=== PATIENT | male | born 1955 | race Caucasian/White ===

== ENCOUNTER 2018-02-11 14:33 | Inpatient (IN) | payer OTHER ==
--- NOTE | 2018-02-11 16:36 | CPEKG ---
Heart Rate: 60 RR Interval: 1000 P-R Interval: 172 QRSD Interval: 100 QT Interval: 420 QTC Interval: 420 P Ratcliff: 47 QRS Ratcliff: -31 T Wave [place]cliff: 37 EKG Severity - ABNORMAL ECG - EKG Impression: SINUS RHYTHM EKG Impression: Left axis deviation Electronically Signed By: Armando Hidalgo 11-Feb-2018 17:20:16
[2018-02-11 16:42] LABS: PLATELET COUNT 234 10^3/uL (150-400)
--- NOTE | 2018-02-11 16:56 | PDGENHP ---
History and Physical - Chief Complaint cp - History of Present Illness This is 62 yo male with no significant pmhx who was seen by his liquor commissioner today (Dr. Bisi Poe from ) for chest pain and GRANDE. According to Dr. Poe he had a treadmill stress test today and during this test he had ST depressions and chest pain. I was originally contacted by Dr. Poe requesting a direct admission. After discussion we agreed that the patient would go to our ED for stabilization. This did not occur as the pt drove himself to the hospital and has shown up to the PCU with admission paperwork. We do not have a copy of the treadmill test. He did not have a troponin checked in the office. We do not have an EKG He is having 1-2 substernal chest pain. He has a family hx of cardiac disease and his father and grandfather from [place] in their late 60's. He is a non smoker. no hx of dm. no hx of HLD. no hx of HTN. He has a hx of well controlled asthma. PMHx: Per above PSHx: sinus surgery Soc: no T. social ETOH. no illicits, retired FmHx: per above History Information - Allergies/Home Medication List Allergies/Adverse Reactions: Sulfa (Sulfonamide Antibiotics) Allergy (Unknown, Unverified 02/11/18 16:12) Itching Home Medications: Acetaminophen/ASA/Caffeine [Excedrin Tablet (*)] 1 each PO DAILY PRN 02/11/18 [ Last Taken 1 Week Ago ~02/04/18] Albuterol [Proventil Inhaler HFA (*)] 1 - 2 puffs IH Q4H PRN 02/11/18 [Last Taken 1 Month Ago ~01/11/18] Ibuprofen [Motrin (*)] 200 - 400 mg PO DAILY PRN 02/11/18 [Last Taken 1 Week Ago ~02/04/18] Ranitidine HCl [Zantac] 150 mg PO DAILY@18 PRN 02/11/18 [Last Taken 02/10/18] I have personally reviewed and updated: medical history, social history - Social History Smoking Status: Never smoked Review of Systems Review of Systems: ROS: 10pt was reviewed & negative except for what was stated in HPI & below Physical Exam Physical Exam: Constitutional: no apparent distress, appears nourished Eyes: PERRL, EOMI Ears, Nose, Mouth, Throat: moist mucous membranes, hearing normal, ears appear normal Cardiovascular: regular rate and rhythym, No edema Respiratory: no respiratory distress, no rales or rhonchi, clear to auscultation Gastrointestinal: normoactive bowel sounds, soft, non-tender abdomen, no palpable masses Skin: warm Musculoskeletal: full muscle strength Neurologic: AAOx3 Psychiatric: interacting appropriately, not anxious, not encephalopathic Lymph, Heme, Immunologic: No petechiae Lab Data & Imaging Review 02/11/18 16:30 02/11/18 16:30 WBC 10.58 10^3/uL (3.80-9.50) H 02/11/18 16:30 RBC 4.91 10^6/uL (4.40-6.38) 02/11/18 16:30 Hgb 15.5 g/dL (13.7-17.5) 02/11/18 16:30 Hct 44.2 % (40.0-51.0) 02/11/18 16:30 MCV 90.0 fL (81.5-99.8) 02/11/18 16:30 MCH 31.6 pg (27.9-34.1) 02/11/18 16:30 MCHC 35.1 g/dL (32.4-36.7) 02/11/18 16:30 RDW 12.9 % (11.5-15.2) 02/11/18 16:30 Plt Count 234 10^3/uL (150-400) 02/11/18 16:30 MPV 10.7 fL (8.7-11.7) 02/11/18 16:30 Neut % (Auto) 63.5 % (39.3-74.2) 02/11/18 16:30 Lymph % (Auto) 25.2 % (15.0-45.0) 02/11/18 16:30 Brown % (Auto) 7.5 % (4.5-13.0) 02/11/18 16:30 Eos % (Auto) 2.7 % (0.6-7.6) 02/11/18 16:30 Baso % (Auto) 0.8 % (0.3-1.7) 02/11/18 16:30 Nucleat RBC Rel Count 0.0 % (0.0-0.2) 02/11/18 16:30 Absolute Neuts (auto) 6.72 10^3/uL (1.70-6.50) H 02/11/18 16:30 Absolute Lymphs (auto) 2.67 10^3/uL (1.00-3.00) 02/11/18 16:30 Absolute Monos (auto) 0.79 10^3/uL (0.30-0.80) 02/11/18 16:30 Absolute Eos (auto) 0.29 10^3/uL (0.03-0.40) 02/11/18 16:30 Absolute Basos (auto) 0.08 10^3/uL (0.02-0.10) 02/11/18 16:30 Absolute Nucleated RBC 0.00 10^3/uL (0-0.01) 02/11/18 16:30 Immature Gran % 0.3 % (0.0-1.1) 02/11/18 16:30 Immature Gran # 0.03 10^3/uL (0.00-0.10) 02/11/18 16:30 Assessment & Plan Assessment: #Chest Pain #Unstable Angina with concerns for ACS Plan: Admit I have ordered stat EKG, TTE, tele, and troponin I have contacted Cardiology who will see the patient stat further reccs per w/u total critical care time is 40 minutes
[2018-02-11] MEDS ORDERED: ONDANSETRON DISINTEGRATING 4 MG TAB PO PRN (16:58)
[2018-02-11] MEDS ORDERED: ONDANSETRON 4 MG/2 ML VIAL IVP PRN (16:58)
[2018-02-11] MEDS ORDERED: ACETAMINOPHEN 325 MG TAB PO PRN (16:58)
[2018-02-11] MEDS ORDERED: ALBUTEROL 3 ML DEYVIAL IH PRN (16:58)
[2018-02-11] MEDS ORDERED: ALBUTEROL 60 PUFFS/8 GM MDI IH PRN (17:03)
[2018-02-11] MEDS ORDERED: ACETAMINOPHEN/ASA/CAFFEINE 1 EACH TAB PO PRN (17:03)
[2018-02-11] MEDS ORDERED: NON-FORMULARY NEW DRUG (Ranitidine Hcl [Zantac] 150 MG) PO PRN (17:03)
[2018-02-11] MEDS ORDERED: FAMOTIDINE 20 MG TAB PO PRN (17:07)
[2018-02-11] MEDS ORDERED: HEPARIN 10,000 UNIT/10 ML MDV (1,000 UNIT/ML) IVP PRN (17:12)
[2018-02-11] MEDS ORDERED: HEPARIN 10,000 UNIT/10 ML MDV (1,000 UNIT/ML) IVP ONE (17:12)
[2018-02-11] MEDS ORDERED: NITROGLYCERIN 0.4 MG BTL SL PRN (17:13)
[2018-02-11] MEDS ORDERED: HEPARIN/DEXTROSE 500 ML IV SCH (17:15)
[2018-02-11] MEDS: METOPROLOL TARTRATE 25 MG TAB PO SCH ×2 (17:56→19:37)
[2018-02-11 18:34] LABS: INR 1.07 (0.83-1.16); PROTIME(PATIENT) 14.1 SEC (12.0-15.0)
--- NOTE | 2018-02-11 22:50 | PDCONSULT ---
Legal Librarian Note: Patient is a 62 y/o male with unremarkable past cardiovascular history (no HTN, HLP, DM, or CAD), who presented to [facility] in unusual manner post stress testing with outside facility today. Chest pains were noted during stress and ST depression of 1-2 mm was noted. This testing was recommended by PCP after patient noted 10/10 chest pains yesterday while exercising. Patient denied any similar symptoms - certainly to the degree noted yesterday - but corrected patient and stated that several weeks of discomfort had been noted. Dyspnea and severe exercise intolerance have been noted in patient with regular and routine exercise program. No labs had been obtained. No ECG tracings were available (report on the stress test was reviewed, but the physical tracings were not available. Some form of communications had been achieved, but [facility] recommendations were for patient to proceed through the ER, not be a direct admission Upon arrival to floor, the patient did report 1/10 chest discomfort. A stat ECG was obtained after hearing the history without dynamic ST/T wave changes noted. Echocardiogram was urgently requested, and I sat in the room as this procedure was completed (normal wall motion and no wall motion abnormalities were noted) Given the history from the patient and , as well as the report of the abnormality to the ETT, cardiac catheterization is recommended. There were no acute or urgent indications for this to be performed this evening. Serial cardiac biomarkers should be obtained. Recommendations for heparin this evening with beta hemal therapy as well as nitro paste (given the vague symptoms reported) NPO after midnight tonight. We will proceed with angiography tomorrow morning. I did speak with the substation wireman team about he unusual presentation of the patient to [facility] simply to elevate overnight awareness of the patients symptoms and pending, invasive, testing.
[2018-02-12 06:02] LABS: PLATELET COUNT 235 10^3/uL (150-400)
[2018-02-12] MEDS: METOPROLOL TARTRATE 25 MG TAB PO SCH ×2 (08:33→20:11)
--- NOTE | 2018-02-12 10:11 | ECHO ---
[email or web address] [address] Main: [phone] Fax: Transthoracic Echocardiogram Name: JL DAVIES MR#: [id number] Study Date: 02/11/2018 Study Time: 04:41 PM Date of : 1955 Age: 62 year(s) Height: 172.7 cm (68 in.) Weight: 77.11 kg (170 lb.) BSA: 1.91 m2 Gender: Male Examination: Echo Indication: Chest Pain Image Quality: Adequate Contrast: Requested by: Jerson Rivera BP: 136 mmHg/92 mmHg Heart Rate: Rhythm: Indication: Chest Pain Procedure Staff Manager Highway: Megan Lewis [facility] Reading Physician: Demian Robbins MD Requesting Provider: Conclusions: Normal size left ventricle. No LV hypertrophy. Normal global systolic LV function. EF is 52 %. No regional wall motion abnormality. Normal diastolic LV function. The mitral valve is normal in appearance and function. Mild mitral valve regurgitation is present. The aortic valve is normal in appearance and function. Mild aortic valve regurgitation is present. The tricuspid valve is normal in appearance and function. Mild tricuspid regurgitation is present. Right ventricular systolic pressure measures 23mmHg. Mild pulmonic valve regurgitation is noted. No pericardial effusion. Measurements: Chambers Valvular Assessment AV/MV Valvular Assessment TV/PV Normal Normal Normal Name Value Range Name Value Range Name Value Range Ao Evelyn (2D): 3.3 cm (1.4 cm-2.6 AV meanP mmHg ( - ) TR Vmax: 2.13 mm/s ( - ) cm) MATHIEU (VTI): 2.4 cm ( - ) TR PGmax: 18 mmHg ( - ) IVSd (2D): 1.1 cm (0.6 cm-1.1 MV E Vmax: 0.50 m/s ( - ) syst. PAP: 23 mmHg ( - ) cm) MV A Vmax: 0.54 m/s ( - ) PV Vmax: 0.69 m/s (0.6 m/s-0.9 LVDd (2D): 5.2 cm (4.2 cm-5.9 MV E/A: 0.93 ( - ) m/s) cm) MV PHT: 0.064 s ( - ) PV PGmax: 2 mmHg ( - ) LVDs (2D): 3.6 cm (2.1 cm-4 cm) MVA (PHT): 3.4 s ( - ) LVPWd (2D): 1.1 cm (0.6 cm-1 cm) Patient: JL DAVIES Study Date: 02/11/2018 Page 1 of 2 04:41 PM LVOTd 2.0 cm 2.0 cm mm LVEF (BP): 52 % (>=55 %) RVDd(2D): 3.9 cm (1.9 cm-3.8 cmmm) Continued Measurements: Chambers Valvular Assessment AV/MV Valvular Assessment TV/PV Name Value Name Value Name Value LADs: 3.5 cm MV DecTime: 183 m/s CVP (est.): 5 mmHg LADs Lon.2 cm MV E' Septal: 0.07 m/s LA Area: 15.4 cm2 MV E/E' Septal: 7.10 RA Area: 15.8 cm2 MV E/E' Lateral: 4.40 Additional Vessels Name Value Ao Ascendin.7 cm Inferior Vena Cava: 1.4 cm Findings: Left Ventricle: Normal size left ventricle. No LV hypertrophy. Normal global systolic LV function. EF is 52 %. No regional wall motion abnormality. Normal diastolic LV function. Right Ventricle: Normal size right ventricle. Normal RV function. Left Atrium: The left atrium is normal in size. Right Atrium: The right atrium is normal in size. Mitral Valve: The mitral valve is normal in appearance and function. Mild mitral valve regurgitation is present. No mitral stenosis is present. Aortic Valve: The aortic valve is normal in appearance and function. Mild aortic valve regurgitation is present. No aortic valve stenosis is present. Tricuspid Valve: The tricuspid valve is normal in appearance and function. Mild tricuspid regurgitation is present. The pulmonary artery pressure is normal. Right ventricular systolic pressure measures 23mmHg. Pulmonic Valve: Pulmonary valve not well visualized. Mild pulmonic valve regurgitation is noted. Aorta: The aorta is normal. Normal size aortic root measuring 3.3 cm. Normal size ascending aorta measuring 2.7 cm. IVC: The IVC is normal sized. Pericardium: No pericardial effusion. No pleural effusion. Exam Comments: Dr. Robbins in room during exam. (No Signature Object) Patient: JL DAVIES Study Date: 02/11/2018 Page 2 of 2 04:41 PM [id number]
[2018-02-12] MEDS ORDERED: diphenhydrAMINE 25 MG CAP PO ONE ×2 (11:02→11:15)
[2018-02-12] MEDS ORDERED: DIAZEPAM 5 MG TAB PO ONE (11:02)
[2018-02-12] MEDS ORDERED: ASPIRIN EC 325 MG TAB PO ONE ×3 (11:02→14:13)
[2018-02-12] MEDS ORDERED: NS 1,000 ML IV ONE (11:02)
[2018-02-12] MEDS ORDERED: FAMOTIDINE 20 MG TAB PO ONE (11:02)
[2018-02-12] MEDS ORDERED: IOPAMIDOL (ISOVUE-370) 150 ML BTL IV ONE ×2 (11:10→12:42)
[2018-02-12] MEDS ORDERED: LIDOCAINE 1% 300 MG/30 ML SDV ONE ×2 (11:10→13:46)
[2018-02-12] MEDS ORDERED: fentaNYL 100 MCG/2 ML INJ ONE ×3 (11:10→14:01)
[2018-02-12] MEDS ORDERED: MIDAZOLAM 2 MG/2 ML VIAL ONE ×2 (11:10→11:58)
--- NOTE | 2018-02-12 11:12 | PDCARCONS ---
Cardiology Consult Reason for Consult: Abnormal ETT Chief Complaint: Chest pains with an abnormal ETT (ST depression with chest pains) Requesting Physician: Hospitalist team History of Present Illness: Patient is a 62 y/o male with unremarkable past cardiovascular history (no HTN, HLP, DM, or CAD), who presented to [facility] after having an exercise stress testing earlier in the day with gross abnormalities noted and associated chest discomfort. Chest discomfort was acutely noted earlier this week (07/29) while exercising. The pain was severe enough that the patient thought it "...might be 'it'...". Call to PCP with recommendations for cardiology. Cardiology assessment at [facility] ([facility]) with ST/T wave changes noted on ETT with associated chest pains. Patient denied any symptoms prior to this, but , present in the room with the patient reminded the patient that he has been having some issues for the past several weeks. Chief complaints are chest pains and severe exercise intolerance (patient with regular and routine exercise program). Family history of premature CAD is noted. Sibling health is unremarkable. No tobacco use. Mild "chest discomfort" was noted last night , but the patient downplayed this (patient is ex and continues with exercise program from days of past). Twelve point review of systems was otherwise unremarkable. History Information - Allergies/Home Medication List Allergies/Adverse Reactions: Sulfa (Sulfonamide Antibiotics) Allergy (Unknown, Unverified 02/11/18 16:12) Itching Home Medications: Acetaminophen/ASA/Caffeine [Excedrin Tablet (*)] 1 each PO DAILY PRN 02/11/18 [ Last Taken 1 Week Ago ~02/04/18] Albuterol [Proventil Inhaler HFA (*)] 1 - 2 puffs IH Q4H PRN 02/11/18 [Last Taken 1 Month Ago ~01/11/18] Ibuprofen [Motrin (*)] 200 - 400 mg PO DAILY PRN 02/11/18 [Last Taken 1 Week Ago ~02/04/18] Ranitidine HCl [Zantac] 150 mg PO DAILY@18 PRN 02/11/18 [Last Taken 02/10/18] I have personally reviewed and updated: family history, medical history, social history, surgical history Past Medical History: - Past Medical History no pertinent PMH - Surgical History Reports: no pertinent surgical hx - Family History Positive for: father with history of CAD younger than 55 - Social History Smoking Status: Never smoked Alcohol Use: None Drug Use: None Cardiac History - Cardiac History Cardiac Risk Factors: family history of premature CAD, male Timing/Duration: Days Severity: severe Severity Scale: 10 Location: substernal Activities at Onset: activity Modifying Factors: improves with: exercise, rest Associated Symptoms: chest pain, weakness SOLIS Risk Evaluation age greater or equal to 65: no greater or equal to 3 CAD risk factors: no known CAD(stenosis greater or eqaul to 50%): no ASA use in past 7 days: yes severe angina(greater or equal to 2 episodes in 24hrs): yes EKG ST changes greater or equal to 0.5mm: no positive cardiac marker: no Total Score: 2 SOLIS Score: 8.3% risk Physical Exam Physical Exam: Temp Pulse Resp BP Pulse Ox 36.7 C 54 L 10 L 113/77 98 02/12/18 07:57 02/12/18 07:57 02/12/18 07:57 02/12/18 07:57 02/12/18 07:57 Constitutional: no apparent distress, appears nourished, not in pain Eyes: PERRL, EOMI Ears, Nose, Mouth, Throat: moist mucous membranes, hearing normal Cardiovascular: regular rate and rhythym, no murmur, rub, or gallop, pulses symmetric bilaterally, No JVD Peripheral Pulses: 2+: dorsalis-pedis (R), dorsalis-pedis (L) Respiratory: no respiratory distress, no rales or rhonchi, clear to auscultation Gastrointestinal: normoactive bowel sounds, soft, non-tender abdomen Skin: warm, normal color Musculoskeletal: full muscle strength Neurologic: AAOx3, sensation intact bilaterally, CN II-XII Intact Psychiatric: interacting appropriately, not anxious Lab and Imaging 02/12/18 05:52 02/12/18 05:52 WBC 7.82 10^3/uL (3.80-9.50) 02/12/18 05:52 RBC 4.91 10^6/uL (4.40-6.38) 02/12/18 05:52 Hgb 15.7 g/dL (13.7-17.5) 02/12/18 05:52 Hct 44.9 % (40.0-51.0) 02/12/18 05:52 MCV 91.4 fL (81.5-99.8) 02/12/18 05:52 MCH 32.0 pg (27.9-34.1) 02/12/18 05:52 MCHC 35.0 g/dL (32.4-36.7) 02/12/18 05:52 RDW 12.7 % (11.5-15.2) 02/12/18 05:52 Plt Count 235 10^3/uL (150-400) 02/12/18 05:52 MPV 10.7 fL (8.7-11.7) 02/12/18 05:52 Neut % (Auto) 56.6 % (39.3-74.2) 02/12/18 05:52 Lymph % (Auto) 30.3 % (15.0-45.0) 02/12/18 05:52 [place] % (Auto) 7.7 % (4.5-13.0) 02/12/18 05:52 Eos % (Auto) 3.8 % (0.6-7.6) 02/12/18 05:52 Baso % (Auto) 1.3 % (0.3-1.7) 02/12/18 05:52 Nucleat RBC Rel Count 0.0 % (0.0-0.2) 02/12/18 05:52 Absolute Neuts (auto) 4.43 10^3/uL (1.70-6.50) 02/12/18 05:52 Absolute Lymphs (auto) 2.37 10^3/uL (1.00-3.00) 02/12/18 05:52 Absolute Monos (auto) 0.60 10^3/uL (0.30-0.80) 02/12/18 05:52 Absolute Eos (auto) 0.30 10^3/uL (0.03-0.40) 02/12/18 05:52 Absolute Basos (auto) 0.10 10^3/uL (0.02-0.10) 02/12/18 05:52 Absolute Nucleated RBC 0.00 10^3/uL (0-0.01) 02/12/18 05:52 Immature Gran % 0.3 % (0.0-1.1) 02/12/18 05:52 Immature Gran # 0.02 10^3/uL (0.00-0.10) 02/12/18 05:52 PT 14.1 SEC (12.0-15.0) 02/11/18 16:35 INR 1.07 (0.83-1.16) 02/11/18 16:35 APTT 31.5 SEC (23.0-38.0) 02/11/18 16:35 D-Dimer < 0.27 ug/mLFEU (0.00-0.50) 02/11/18 16:30 Heparin Anti-Xa, Unfract 0.46 IU/mL (0.32-0.67) 02/12/18 05:52 Sodium 142 mEq/L (135-145) 02/12/18 05:52 Potassium 4.2 mEq/L (3.5-5.2) 02/12/18 05:52 Chloride 105 mEq/L (97-110) 02/12/18 05:52 Carbon Dioxide 28 mEq/l (22-31) 02/12/18 05:52 Anion Gap 9 mEq/L (8-16) 02/12/18 05:52 BUN 14 mg/dL (7-23) 02/12/18 05:52 Creatinine 0.9 mg/dL (0.7-1.3) 02/12/18 05:52 Estimated GFR > 60 02/12/18 05:52 Glucose 87 mg/dL (70-100) 02/12/18 05:52 Hemoglobin A1c 5.3 % (4.0-6.0) 02/12/18 05:52 Estim Average Glucose 105 mg/dL (68-126) 02/12/18 05:52 Calcium 9.5 mg/dL (8.5-10.4) 02/12/18 05:52 Magnesium 1.8 mg/dL (1.6-2.3) 02/11/18 16:30 Troponin I < 0.012 ng/mL (0.000-0.034) 02/12/18 05:52 Triglycerides 62 mg/dL (40-150) 02/12/18 05:52 Cholesterol 200 mg/dL (140-220) 02/12/18 05:52 Cholesterol Risk Factr 0.5 (0.2-1.0) 02/12/18 05:52 LDL Cholesterol, Calc 126 mg/dL (80-100) H 02/12/18 05:52 LDL Risk Factor 0.8 (0.2-1.0) 02/12/18 05:52 VLDL Cholesterol 12 mg/dL (8-25) 02/12/18 05:52 Non-HDL Cholesterol 138 mg/dL (90-129) H 02/12/18 05:52 HDL Cholesterol 62 mg/dL (40-65) 02/12/18 05:52 LDL/HDL Ratio 2.03 RATIO (1.00-3.64) 02/12/18 05:52 Cholesterol/HDL Ratio 3.23 RATIO (1.00-4.97) 02/12/18 05:52 TSH 2.120 uIU/mL (0.465-4.680) 02/12/18 05:52 Visualized and Interpreted Chest x-ray results: Yes Chest X-ray Interpretation: no infiltrate, normal Visualized and Interpreted EKG results: Yes EKG Interpretation: Positive for: normal sinsus rhythm Telemetry: normal sinus rhythm Echocardiogram: normal LVEF. normal wall motion A/P Assessment: Patient is a 62 y/o male with unremarkable past cardiovascular history, who recently noted severe, substernal chest pains with exercise. Given the symptoms , the patient was set up for ETT, and on this testing, there was both chest pain as well as ST depression (1.5 mm per cardiology notes). Given the stress test and the symptoms, the patient was sent over to [facility] to have invasive heart catheterization. The patient was seen last night with stat ECG and echo, given the presentation and some degree of poor communication. No symptoms were appreciated. ECG without dynamic changes. Echo without wall motion or suppression of LVEF. Heparin was started, beta blockers dosed, and nitrates made available. drive thru order taker cardiology was informed of the patient's presence. Today, the patient is doing well. Risks and benefits of angiography were discussed with the patient and consents were signed. Plan: (1) Left heart catheterization today (2) Further recommendations after invasive testing has been completed.
[2018-02-12] MEDS ORDERED: DIAZEPAM 5 MG TAB ONE (11:15)
[2018-02-12] MEDS ORDERED: EPINEPHrine 1 MG/10 ML SYR IVP ONE (11:18)
[2018-02-12] MEDS ORDERED: ATROPINE SULFATE 1 MG/10 ML SYR ONE (11:18)
--- NOTE | 2018-02-12 11:20 | PDPROPOC ---
Sedation Plan of Care Sedation Plan of Care: vital signs stable, mental status noted, patient educated of risks, benefits, alternatives, patient can tolerate sedation ASA Classification: ASA 2 Planned drugs: fentanyl, midazolam Mallampati Score: Class 3 Mallampati Reference Image: Patient passed 3-3-2 rule?: Yes
[2018-02-12] MEDS ORDERED: BIVALIRUDIN 250 MG/5 ML VIAL IV ONE ×2 (12:01→13:18)
--- NOTE | 2018-02-12 12:20 | PDDXCAT ---
Diagnostic Cath Note - . Date: 02/12/18 Marine Cargo Surveyor: Rosendo High-risk criteria on non-invasive testing: high-risk treadmill score (score<=- 11) - Procedure Access: right groin Procedure: left heart catheterization, coronary angiography, left ventriculogram - Materials Left Heart Cath size: 6F Left Heart Cath materials: standard multipack (JL4, JR4, pigtail) - Findings-Left Heart Catheterization LM: short vessel with bifurcation into the LAD and LCX vessels. No luminal irregularities were noted. LAD: Medium diameter vessel with a critical (>99%) lesion to the proximal portion of the vessel. SOLIS I flow (at best) is noted distal to this lesion. Just distal to the critical lesion, there is a principal diagonal (D1) roughly equal in magnitude to the take off from the LAD. LCX: Large diameter vessel with small OM1, large OM2 and OM3 (to the degree that there is supply to the PDA territory. No luminal irregularities were noted to the LCX system. RCA: Medium diameter vessel with codominance to the PDA territory. No luminal irregularities were noted. There are some right to left collaterals to the mid and distal LAD. EDP: 18 mm Hg LVEF: 65% Wall motion: normal wall motion Complications: none Estimated blood loss: <50ml Assessment: 62 y/o male with abnormal ETT, complaints of chest pains, but no history of HTN, HLP, DM, or CAD, who presented to [facility] last night. Angiography today with critical, proximal LAD lesion. Plan: Intervention to the proximal LAD by Dr. Heidi Aguilera. Intervention: pLAD
[2018-02-12] MEDS ORDERED: ABCIXIMAB 10 MG/5 ML VIAL ONE ×2 (12:33→12:36)
[2018-02-12] MEDS ORDERED: niCARdipine 25 MG/10 ML VIAL IV ONE (12:38)
[2018-02-12] MEDS ORDERED: DILTIAZEM 25 MG/5 ML VIAL IVP ONE (12:38)
[2018-02-12] MEDS ORDERED: HEPARIN 10,000 UNIT/10 ML MDV (1,000 UNIT/ML) ONE (12:42)
[2018-02-12] MEDS ORDERED: NITROGLYCERIN 1,500 MCG/15 ML VIAL MISC ONE (12:53)
--- NOTE | 2018-02-12 13:02 | PDDXCAT ---
Diagnostic Cath Note - . Date: 02/12/18 Certified Anesthesiologist Assistant: Willy Indication: High-risk criteria on noninvasive testing (choose option below) High-risk criteria on non-invasive testing: high-risk treadmill score (score<=- 11) - Procedure Access: right groin Procedure: left heart catheterization, other (PCI) - Materials Left Heart Cath size: 6F Left Heart Cath materials: standard multipack (JL4, JR4, pigtail) - Findings-Left Heart Catheterization LM: The LM bifurcates into an LAD and circumflex system. LAD: There is a critical 99% stenosis of the proximal portion of the vessel. There is angiographic evidence of a thrombus in the proximal LAD.There is SOLIS I flow present distally. Just distal to the critical lesion, there is a principal diagonal roughly equal in magnitude to the take off from the LAD. LCX: SOLIS III flow. LVEF: The EF is 65%. Wall motion: On the LV gram there is normal LV systolic function. The EF is 65% . There are no resting segmental wall motion abnormalities. The visualized portion of the thoracic aortic valce reveals three sinuses of valsalva most consistent with a trileaflet valve. There is no gradient on pullback across the aortic valve. There is no evidence of luis dissection or aneurysm formation. Estimated blood loss: <50ml Assessment: Dr. Diggs performed initial angiography. The patient had a 99% obstruction at the proximal LAD that required stenting. After the initial stent implantation of the proximal and ostial LAD there was evidence of severe no re- flow phenomenon and severe and tombstone like ST elevation requiring stents of the LAD and first diagonal bifurcation. The no reflow respanded to IC Cardene Nitroglycerine and bifurcation stenting. Plan: Dual antiplatelet therapy with Aspirin 325mg for the first dose followed by Aspirin 81mg along with Brilinta 90mg BID should be continued for at least 1 year following drug eluting stent implantation. No elective surgery for the first 3 months. Decisions to stop dual antiplatelet therapy before 1 year should involve our office [facility]. It is important to note that the patient should not take more than 100mg of Aspirin daily while taking Brilinta because this can reduce the effectiveness of Brilinta/Ticagrelor. Intervention: A 6 Czech JL4 guiding catheter was used for guide catheter support. A 0.014" Intuition Wire was advanced across the lesion in question under direct fluoroscopic and angiographic guidance. A 3.0 x 15 mm Emerge balloon was used to pre-dilate the lesion, max pressure was 10 JANNET. A 4.0 x 12 mm Synergy drug eluting stent was then advanced across the 99% lesion in the ostial LAD. The proximal stent was complicated by severe no re-flow and ST elevations which required a stent to the proximal LAD and first diagonal (bifurcation stenting). The LAD was stented with a 3.0 x 28 mm Synergy drug eluting stent. The plaque shifted into the first diagonal. I then added a second Intuition wire and inserted it into the first diagonal. I stented the first diagonal with a Synergy 3.0 x 16 mm drug eluting stent. Two Emerge 3.0 x 15 balloons were advanced over each wire in the LAD and the diagonal. Kissing balloon angioplasty was then performed initially with two 3 by 15mm Emerge balloons. The LAD balloon ruptured and was removed. Post stent dilation of the LAD was then performed with a 3.0 x 12 mm NC balloon and the 3 X 15 Emerge balloon in the diagonal again using kissing balloon technique. IVUS of the mid LAD was accomplished with a 6 Czech JL4 guiding catheter, 0.014 Intuition coronary wire, and a Leiyoo IVUS catheter all the way back to the left main ostium. There was moderate eccentric plaque of the mid distal LAD was identified. The stented sections of the LAD and the ostial takeoff of the first diagonal were all well visualized by the IVUS catheter. A 2 mm segment of the LAD lateral to the diagonal takeoff was not stented, but the lumen and blood flow were very well preserved. There was SOLIS III flow and a 0% residual stenosis post stent. The patient tolerated the procedure well other than severe chest pain and EKG changes during the no reflow. He will return to the post cath recovery area in good and stable condition. A small hematoma was present and the arteriotomy site was above the femoral head. We deployed an angioseal and applied a Femstop device prophylactically to try to avoid a retroperitoneal hemorrhage.
[2018-02-12] MEDS ORDERED: TICAGRELOR 90 MG TAB ONE (13:54)
[2018-02-12] MEDS ORDERED: ATROPINE SULFATE 1 MG/10 ML SYR IVP PRN (14:13)
[2018-02-12] MEDS ORDERED: LORazepam 2 MG/ML INJ IVP PRN (14:13)
[2018-02-12] MEDS ORDERED: TICAGRELOR 90 MG TAB PO ONE (14:13)
[2018-02-12] MEDS ORDERED: TEMAZEPAM 15 MG CAP PO PRN (14:13)
[2018-02-12] MEDS ORDERED: OXYCODONE/APAP 5/325 TAB PO PRN (14:13)
--- NOTE | 2018-02-12 14:49 | CPEKG ---
Heart Rate: 47 RR Interval: 1277 P-R Interval: 196 QRSD Interval: 102 QT Interval: 440 QTC Interval: 389 P [place]: 27 QRS [place]: -50 T Wave [place]: 14 EKG Severity - ABNORMAL ECG - EKG Impression: SINUS BRADYCARDIA EKG Impression: LEFT ANTERIOR FASCICULAR BLOCK Electronically Signed By: Demian Robbins 12-Feb-2018 22:57:19
--- NOTE | 2018-02-12 15:10 | ASMTCASEMG ---
Living Arrangements What is your living Answers: With Spouse arrangement? Who do you live with? Type Of Residence What kind of residence do Answers: House you live in? Discharge Plan Comments Coordination Status Comments Notes: Pts case discussed in tx rounds. Pt is a 62 y/o man admitted for unstable angina and an early positive stress test. Pt had a heart cath today. Pt will most likely d/c independent when medically stable. No therapies ordered at this time. CM available for changes. Plan: Independent Date Signed: 02/12/2018 03:10 PM Electronically Signed By:JOSTIN Vo
[2018-02-12] MEDS ORDERED: METHOCARBAMOL 500 MG TAB PO PRN (18:16)
--- NOTE | 2018-02-12 18:18 | HOSPPROG ---
Hospitalist Progress Note Assessment/Plan: # CAD presented with UA s/p PCI to LAD and diagonal - cont asa/brilinta/metop; will needs statin # back pain - likely msk; also consider cath complication - cont oxy, morphine, robaxin prn Subjective: s/p cath with stents to LAD; c/o back pain similar to previous episodes Objective: Vital Signs Temp Pulse Resp BP Pulse Ox 36.7 C 63 19 115/75 97 02/12/18 17:40 02/12/18 17:40 02/12/18 17:40 02/12/18 17:40 02/12/18 17:40 Laboratory Results 02/12/18 05:52 02/12/18 05:52 02/11/18 02/12/18 02/13/18 05:59 05:59 05:59 Intake Total 742 100 Output Total 400 Balance 742 -300 PT 14.1 SEC (12.0-15.0) 02/11/18 16:35 INR 1.07 (0.83-1.16) 02/11/18 16:35 - Physical Exam Constitutional: no apparent distress, appears nourished Cardiovascular: regular rate and rhythym, no murmur, rub, or gallop Respiratory: no respiratory distress, no rales or rhonchi, clear to auscultation Gastrointestinal: normoactive bowel sounds, soft, non-tender abdomen, no palpable masses ICD10 Worksheet Patient Problems: Problems Problem Status Onset Coronary artery disease Acute
[2018-02-13] MEDS: TICAGRELOR 90 MG TAB PO SCH ×2 (01:37→09:46)
[2018-02-13] MEDS ORDERED: ASPIRIN EC 81 MG TAB PO SCH (09:00)
[2018-02-13] MEDS: METOPROLOL TARTRATE 25 MG TAB PO SCH (09:45)
--- NOTE | 2018-02-13 09:48 | PDMN ---
Medical Necessity Medical necessity: Patient meets inpatient criteria per physician note and MCG M -40 Angina (unstable angina, emergent cath with PCI's to LAD and diagonal after chest pain and ST depression during stress test; ongoing back pain post-cath similar to previous chest pain episodes; LOS will be > 2 midnights for ongoing cardiac monitoring and monitoring for poss cath complications, meds for back pain.)
--- NOTE | 2018-02-13 10:43 | PDCARPN ---
Cardiology Progress Note Chief Complaint: Patient doing well today. No cardiovascular complaints Assessment/Plan: Assessment: Patient is a 62 y/o male with previously unremarkable past cardiovascular history, now status post three stents to the LAD/Diag system after unstable angina presentation to [facility] (and an abnormal ETT). Since the intervention, the patient reports that he has been feeling very well. During the intervention, the patient had significant chest pains and ventricular arrhythmia (VT with spontaneous conversion). Today, the patient is feeling very good, and wanting to go home. Some ventricular ectopy was noted overnight - likely reperfusion - but no protracted arrhythmias. Minimal tenderness to the right groin. was present in the room with the patient today. Plan: (1) ASA and Brilinta therapy for minimum of one year (2) Would continue therapy on beta blockers - blood pressure is low, and follow up discussion about choice or therapy and dose in the outpatient setting (3) Recommendations for patient to be on statin therapy as well - would start patient on 10 mg of Crestor, and have reassessment of FLP and LFTs in 5 weeks (4) Cardiac rehab program is recommended (5) Would refrain from aggressive exercise until cardiac rehab has started Subjective: No cardiovascular complaints Reviewed/Discussed With: family, hospitalist Objective: Vital Signs (8 Hrs) Temp Pulse Resp BP Pulse Ox 02/13/18 03:56 36.7 C 47 L 12 111/63 97 Intake/Output (24 Hrs) 02/12/18 02/13/18 02/14/18 05:59 05:59 05:59 Intake Total 742 250 Output Total 400 Balance 742 -150 Intake: Oral (ml) 450 250 IV Infused (ml) 292 Heparin/Dextrose 500 ml @ 292 Per Protocol IV CONT DIANA Rx#:[id number] Output: Urine (ml) 400 Urinal 400 Other: Weight 77.111 kg Intake Quantity Yes Sufficient Number of Voids Toilet 2 2 Result Diagrams: 02/13/18 03:55 02/12/18 05:52 Cardiac Labs: Cardiac Lab Results (72 Hrs) 02/12/18 02/11/18 02/11/18 05:52 23:35 16:30 Troponin I < 0.012 < 0.012 0.018 Telemetry: normal sinus rhythm - Physical Exam Constitutional: WDWN, healthy appearing, no apparent distress Eyes: PERRL, EOMI Ears, Nose, Mouth, Throat: moist mucous membranes Cardiovascular: regular rate and rhythm, no murmurs, no rubs, pulses symmetric bilat, No jugular vein distention Peripheral Pulses: 2+: dorsalis-pedis (R), dorsalis-pedis (L) Respiratory: clear to auscultate bilat, no crackles, no wheezes Gastrointestinal: normoactive bowel sounds Skin: no rashes, no edema Musculoskeletal: no muscular tenderness Neurologic: AAOx3, CN II-XII grossly intact Psychiatric: cooperative, interactive, following commands ICD10 Worksheet Patient Problems: Problems Problem Status Onset Coronary artery disease Acute
[2018-02-13 11:41] VITALS: BP 105/62
--- NOTE | 2018-02-13 16:30 | GDS ---
[f rep st] DISCHARGE SUMMARY FINAL DIAGNOSES: 1. Unstable angina. 2. Coronary artery disease, newly diagnosed. 3. Back pain. HOSPITAL COURSE: A 62-year-old man admitted after having EKG abnormalities on an outpatient stress t est. He underwent a coronary angiogram on 02/12/2018 after having negative troponins. This showed e jection fraction 65%. He had a 99% proximal LAD lesion that was stented. He is had no significant a rrhythmias on telemetry, though he has had a few ventricular beats. He has done well post catheteriz ation, has no ongoing chest pain. He was started on appropriate cardiac medications including aspiri n, Brilinta, metoprolol, Crestor. I have given him strict instructions on taking these medications a s prescribed with no gaps or cessation. He will follow up with Dr. Aguilera in 1-2 weeks. I have give n him Dr. Aguilera information. He is otherwise discharged in stable condition. He is comfortable wit h this plan. BILLING: I spent more than 30 minutes on the day of discharge coordinating care. /[id number]/MODL
== END 2018-02-13 16:15 | disposition home or self-care (01) | DRG 247 ==
LOC: OBSVTOIN 15:24 → F2W 15:24 → INTOOBSV 15:24
PROVIDERS: ADMIT Family Medicine; ATTEND Student in an Organized Health Care Education/Training Program
PROC: 0270346 Dilation of Coronary Artery, One Artery, Bifurcation, with Drug-eluting Intraluminal Device, Percutaneous Approach (ICD-10-PCS; principal; 2018-02-12)
PROC: 027134Z Dilation of Coronary Artery, Two Arteries with Drug-eluting Intraluminal Device, Percutaneous Approach (ICD-10-PCS; principal; 2018-02-12)
PROC: 4A023N7 Measurement of Cardiac Sampling and Pressure, Left Heart, Percutaneous Approach (ICD-10-PCS; 2018-02-12)
PROC: B245ZZ3 Ultrasonography of Left Heart, Intravascular (ICD-10-PCS; 2018-02-12)
PROC: B2151ZZ Fluoroscopy of Left Heart using Low Osmolar Contrast (ICD-10-PCS; 2018-02-12)
PROC: B2111ZZ Fluoroscopy of Multiple Coronary Arteries using Low Osmolar Contrast (ICD-10-PCS; 2018-02-12)
DX: I25.110 Atherosclerotic heart disease of native coronary artery with unstable angina pectoris (principal); J45.909 Unspecified asthma, uncomplicated; M54.9 Dorsalgia, unspecified; Z82.49 Family history of ischemic heart disease and other diseases of the circulatory system; Z88.2 Allergy status to sulfonamides
CPT/HCPCS: 85520-90; C1725; C1753; C1760; C1769; C1874; C1887; C9600; C9601; G0378; J0130; J0461; J0583; J1644; J2250; J2270; J3010; Q9967

== ENCOUNTER 2018-02-17 12:20 | Observation (INO) | payer OTHER ==
--- NOTE | 2018-02-17 12:36 | CPEKG ---
Heart Rate: 49 RR Interval: 1224 P-R Interval: 176 QRSD Interval: 102 QT Interval: 444 QTC Interval: 401 P [place]: 52 QRS [place]: -41 T Wave [place]: 77 EKG Severity - OTHERWISE NORMAL ECG - EKG Impression: SINUS BRADYCARDIA EKG Impression: LEFT AXIS DEVIATION Electronically Signed By: Xiao Dean 17-Feb-2018 15:18:19
[2018-02-17 12:53] LABS: PLATELET COUNT 249 10^3/uL (150-400)
--- NOTE | 2018-02-17 13:46 | EDPHY ---
H & P Stated Complaint: chest pressure since 02/16--stents placed 02/11-no relief with nitro x 4 Time Seen by Provider: 02/17/18 12:49 HPI/ROS: CHIEF COMPLAINT: Chest pain HISTORY OF PRESENT ILLNESS: This is a 63-year-old male with newly diagnosed coronary artery disease, status post angiogram with stenting of the LAD and the circumflex on 02/12/2018. Reportedly he had EKG abnormalities on an outpatient stress test prior to PCI. He returns today with recurrent substernal chest pain that feels exactly like the pain he was experiencing before his angioplasty. He has been compliant with his medications. He developed pain yesterday afternoon and it has remained constant since that time. He rates it as a "2-3". This morning he took nitroglycerin at 7:15 a.m., 8:15 a.m., 9:15 a.m., and again shortly after 12 noon. He had minimal relief with nitroglycerin. He does not feel short of breath. There is no radiation of pain. He has not had nausea, vomiting, or diaphoresis. REVIEW OF SYSTEMS: A ten point review of systems was performed and is negative with the exception of the items mentioned in the HPI. Past medical history: Coronary artery disease Past surgical history: Angioplasty Family history: Father at 69 of coronary artery disease Social history: He is retired from the . He is here with his . No tobacco products. Minimal alcohol. General Appearance: Alert. Vital signs reviewed. Eyes: Pupils equal and round, no conjunctival injection, no discharge. Anicteric. ENT, Mouth: Mucous membranes are moist, no oropharyngeal erythema or edema. Neck: No lymphadenopathy, supple. No JVD. Respiratory: Lungs are clear to auscultation; no wheezes, rales, or rhonchi. Cardiovascular: Regular rate and rhythm; no murmur, rub, or gallop. Gastrointestinal: Abdomen is soft and nontender, no masses or organomegaly, bowel sounds normal. Skin: Warm and dry, no rashes on exposed skin, normal color. Back: Nontender to palpation over the thoracolumbar spine. No CVAT. Extremities: No lower extremity edema, no calf tenderness or swelling. Neurological: Alert and oriented. Moving all four extremities easily and equally. Psychiatric: Normal affect. - Medical/Surgical History Hx Asthma: Yes Hx Chronic Respiratory Disease: No Hx Diabetes: No Hx Cardiac Disease: No Hx Renal Disease: No Hx Cirrhosis: No Hx Alcoholism: No Hx HIV/AIDS: No Hx Splenectomy or Spleen Trauma: No Other PMH: cardiac stenst 02/11/18-sinus infections, acid reflux, left foot 5 broken toes, left fx ankle, asthma dx 5 y/a, crohns - Social History Smoking Status: Never smoked Constitutional: Initial Vital Signs Temperature (C) 36.8 C 02/17/18 12:25 Heart Rate 57 L 02/17/18 12:25 Respiratory Rate 16 02/17/18 12:25 Blood Pressure 105/75 02/17/18 12:25 O2 Sat (%) 97 02/17/18 12:25 O2 Delivery Mode Room Air Allergies/Adverse Reactions: Sulfa (Sulfonamide Antibiotics) Allergy (Unknown, Verified 02/12/18 12:33) Itching Home Medications: Medication Instructions Recorded Albuterol [Proventil Inhaler HFA 1 - 2 puffs IH Q4H PRN 02/11/18 (*)] Ranitidine HCl [Zantac] 150 mg PO DAILY@18 PRN 02/11/18 Aspirin EC [Aspirin EC 81 mg (*)] 81 mg PO DAILY tab 02/13/18 Metoprolol Tartrate [Lopressor 25 25 mg PO BID #60 tab 02/13/18 mg (*)] Nitroglycerin [Nitrostat 0.4 mg 0.4 mg SL Q5M PRN #1 btl 02/13/18 (*)] Rosuvastatin Calcium [Crestor] 10 mg PO DAILY #30 tablet 02/13/18 Ticagrelor [Brilinta] 90 mg PO BID #60 tab 02/13/18 Medical Decision Making - Diagnostics EKG Interpretation: 12 lead EKG is interpreted in Trace master View by emergency department physician. ED Course/Re-evaluation: Substernal chest pain 5 days post angioplasty. No relief with nitroglycerin. No EKG changes. Initial troponin is 0.055, intermediate range. Chest x-ray shows no acute pulmonary disease. I spoke with Dr. Kim of Cardiology about this patient. He saw the patient in the emergency department and at this point in time plans to cycle troponins. He is being admitted by the hospitalist service. Differential Diagnosis: Chest pain including but not limited to myocardial ischemia, pulmonary embolus, chest wall pain, pleural inflammation and pulmonary infectious causes. - Data Points Laboratory Results: Laboratory Results 02/17/18 12:35 02/17/18 12:35 02/17/18 02/17/18 12:35 12:35 WBC 8.65 10^3/uL 10^3/uL (3.80-9.50) RBC 4.77 10^6/uL 10^6/uL (4.40-6.38) Hgb 15.3 g/dL g/dL (13.7-17.5) Hct 42.7 % % (40.0-51.0) MCV 89.5 fL fL (81.5-99.8) MCH 32.1 pg pg (27.9-34.1) MCHC 35.8 g/dL g/dL (32.4-36.7) RDW 12.5 % % (11.5-15.2) Plt Count 249 10^3/uL 10^3/uL (150-400) MPV 10.5 fL fL (8.7-11.7) Neut % (Auto) 66.2 % % (39.3-74.2) Lymph % (Auto) 22.4 % % (15.0-45.0) [place] % (Auto) 7.3 % % (4.5-13.0) Eos % (Auto) 2.9 % % (0.6-7.6) Baso % (Auto) 1.0 % % (0.3-1.7) Nucleat RBC Rel Count 0.0 % % (0.0-0.2) Absolute Neuts (auto) 5.72 10^3/uL 10^3/uL (1.70-6.50) Absolute Lymphs (auto) 1.94 10^3/uL 10^3/uL (1.00-3.00) Absolute Monos (auto) 0.63 10^3/uL 10^3/uL (0.30-0.80) Absolute Eos (auto) 0.25 10^3/uL 10^3/uL (0.03-0.40) Absolute Basos (auto) 0.09 10^3/uL 10^3/uL (0.02-0.10) Absolute Nucleated RBC 0.00 10^3/uL 10^3/uL (0-0.01) Immature Gran % 0.2 % % (0.0-1.1) Immature Gran # 0.02 10^3/uL 10^3/uL (0.00-0.10) Sodium 140 mEq/L mEq/L (135-145) Potassium 4.5 mEq/L mEq/L (3.5-5.2) Chloride 101 mEq/L mEq/L (97-110) Carbon Dioxide 28 mEq/l mEq/l (22-31) Anion Gap 11 mEq/L mEq/L (8-16) BUN 15 mg/dL mg/dL (7-23) Creatinine 1.0 mg/dL mg/dL (0.7-1.3) Estimated GFR > 60 Glucose 96 mg/dL mg/dL (70-100) Calcium 9.5 mg/dL mg/dL (8.5-10.4) Troponin I 0.055 ng/mL H ng/mL (0.000-0.034) Departure - Departure Disposition: [facility] Inpatient Acute Clinical Impression: Chest pain Qualifiers: Chest pain type: precordial pain Qualified Code(s): R07.2 - Precordial pain Condition: Fair
--- NOTE | 2018-02-17 15:25 | PDGENHP ---
History and Physical - Chief Complaint Chest pain - History of Present Illness This is a 62-year-old male and cardiac catheterization on 02/12/18 after he presented hospital with chest pain and was found to have a critical 99% stenosis of the proximal LAD which was subsequently stented. Patient returns to the emergency department today after developing substernal chest pain that began last night after eating dinner. Pain was described as a 2/10 substernal pressure that was worse with taking deep breaths. The pain has been constant since onset last night. This morning he took a nitroglycerin which brought his pain down to about a level 1/10. He has since taken 3 more doses of nitroglycerin with similar result. Patient does have reflux for which she takes ranitidine daily. He feels like his symptoms today are different from that of his usual reflux which she has had for a long time. History Information - Allergies/Home Medication List Allergies/Adverse Reactions: Sulfa (Sulfonamide Antibiotics) Allergy (Unknown, Verified 02/12/18 12:33) Itching Home Medications: Albuterol [Proventil Inhaler HFA (*)] 1 - 2 puffs IH Q4H PRN 02/11/18 [Last Taken 1 Month Ago ~01/11/18] Ranitidine HCl [Zantac] 150 mg PO DAILY@18 PRN 02/11/18 [Last Taken 02/10/18] I have personally reviewed and updated: family history, medical history, social history, surgical history - Past Medical History coronary artery disease (With stent placement on 02/12 2018 for high grade proximal LAD stenosis), GERD - Surgical History Reports: no pertinent surgical hx - Family History Positive for: father with history of CAD younger than 55 - Social History Smoking Status: Never smoked Alcohol Use: Occasionally Drug Use: None Review of Systems Review of Systems: ROS: 10pt was reviewed & negative except for what was stated in HPI & below Physical Exam Physical Exam: Temp Pulse Resp BP Pulse Ox 36.8 C 52 L 16 111/68 94 02/17/18 14:17 02/17/18 14:17 02/17/18 14:17 02/17/18 14:17 02/17/18 14:17 Constitutional: no apparent distress, appears nourished, not in pain Eyes: PERRL, anicteric sclera, EOMI Ears, Nose, Mouth, Throat: moist mucous membranes, hearing normal, ears appear normal, no oral mucosal ulcers Cardiovascular: no murmur, rub, or gallop, bradycardia, No edema Respiratory: no respiratory distress, no rales or rhonchi, clear to auscultation Gastrointestinal: normoactive bowel sounds, soft, non-tender abdomen, no palpable masses Genitourinary: no bladder fullness, no bladder tenderness Skin: warm, normal color, no rashes or abrasions, no fluctuance, no induration, No mottled Musculoskeletal: full muscle strength, no muscle tenderness, normal joint ROM, no joint effusions Neurologic: AAOx3, CN II-XII Intact, No facial droop Psychiatric: interacting appropriately, not anxious, not encephalopathic, thought process linear Lymph, Heme, Immunologic: no cervical LAD, no supraclavicular LAD Lab Data & Imaging Review 02/17/18 12:35 02/17/18 12:35 WBC 8.65 10^3/uL (3.80-9.50) 02/17/18 12:35 RBC 4.77 10^6/uL (4.40-6.38) 02/17/18 12:35 Hgb 15.3 g/dL (13.7-17.5) 02/17/18 12:35 Hct 42.7 % (40.0-51.0) 02/17/18 12:35 MCV 89.5 fL (81.5-99.8) 02/17/18 12:35 MCH 32.1 pg (27.9-34.1) 02/17/18 12:35 MCHC 35.8 g/dL (32.4-36.7) 02/17/18 12:35 RDW 12.5 % (11.5-15.2) 02/17/18 12:35 Plt Count 249 10^3/uL (150-400) 02/17/18 12:35 MPV 10.5 fL (8.7-11.7) 02/17/18 12:35 Neut % (Auto) 66.2 % (39.3-74.2) 02/17/18 12:35 Lymph % (Auto) 22.4 % (15.0-45.0) 02/17/18 12:35 [place] % (Auto) 7.3 % (4.5-13.0) 02/17/18 12:35 Eos % (Auto) 2.9 % (0.6-7.6) 02/17/18 12:35 Baso % (Auto) 1.0 % (0.3-1.7) 02/17/18 12:35 Nucleat RBC Rel Count 0.0 % (0.0-0.2) 02/17/18 12:35 Absolute Neuts (auto) 5.72 10^3/uL (1.70-6.50) 02/17/18 12:35 Absolute Lymphs (auto) 1.94 10^3/uL (1.00-3.00) 02/17/18 12:35 Absolute Monos (auto) 0.63 10^3/uL (0.30-0.80) 02/17/18 12:35 Absolute Eos (auto) 0.25 10^3/uL (0.03-0.40) 02/17/18 12:35 Absolute Basos (auto) 0.09 10^3/uL (0.02-0.10) 02/17/18 12:35 Absolute Nucleated RBC 0.00 10^3/uL (0-0.01) 02/17/18 12:35 Immature Gran % 0.2 % (0.0-1.1) 02/17/18 12:35 Immature Gran # 0.02 10^3/uL (0.00-0.10) 02/17/18 12:35 Sodium 140 mEq/L (135-145) 02/17/18 12:35 Potassium 4.5 mEq/L (3.5-5.2) 02/17/18 12:35 Chloride 101 mEq/L (97-110) 02/17/18 12:35 Carbon Dioxide 28 mEq/l (22-31) 02/17/18 12:35 Anion Gap 11 mEq/L (8-16) 02/17/18 12:35 BUN 15 mg/dL (7-23) 02/17/18 12:35 Creatinine 1.0 mg/dL (0.7-1.3) 02/17/18 12:35 Estimated GFR > 60 02/17/18 12:35 Glucose 96 mg/dL (70-100) 02/17/18 12:35 Calcium 9.5 mg/dL (8.5-10.4) 02/17/18 12:35 Troponin I 0.055 ng/mL (0.000-0.034) H 02/17/18 12:35 Visualized and Interpreted EKG results: Yes EKG Interpretation: Positive for: normal sinsus rhythm (Bradycardic rate 49 beats per minute). Negative for: ST elevation, ST depression Assessment & Plan Assessment: This 62-year-old male status post PCI to the LAD on 02/12/2018 for high-grade proximal LAD lesion presenting with: # substernal chest pain concerning for acute coronary syndrome versus GERD versus PE versus pericarditis -I discussed case with Dr. Kim from Cardiology who will see the patient in consultation later today. -trend troponins, check ESR/CRP, D-dimer -echocardiogram The patient requests to be full code status
[2018-02-17] MEDS ORDERED: NITROGLYCERIN 0.4 MG BTL SL PRN ×2 (15:31→17:42)
[2018-02-17] MEDS ORDERED: ACETAMINOPHEN 325 MG TAB PO PRN (15:31)
[2018-02-17] MEDS ORDERED: ONDANSETRON 4 MG/2 ML VIAL IVP PRN (15:31)
[2018-02-17] MEDS: PANTOPRAZOLE SODIUM 40 MG TAB PO SCH (16:40)
--- NOTE | 2018-02-17 16:55 | ECHO ---
[email or web address] [address] [address] Main: [phone] Fax: Transthoracic Echocardiogram Name: JL DAVIES MR#: [id number] Study Date: 02/17/2018 Study Time: 04:11 PM Date of : 1955 Age: 62 year(s) Height: 172.7 cm (68 in.) Weight: 76.2 kg (168 lb.) BSA: 1.9 m2 Gender: Male Examination: Echo Indication: Image Quality: Contrast: Requested by: Yayo Mayer BP: 138 mmHg/79 mmHg Heart Rate: Rhythm: Indication: Procedure Staff [employer] B[employer]: Jeermy Ricketts RDCS Reading Physician: Koby Richey MD Requesting Provider: Conclusions: Normal global systolic LV function. EF is 65 %. Mild mitral valve regurgitation is present. Trivial tricuspid valve regurgitation. No pericardial effusion. Measurements: Chambers Valvular Assessment AV/MV Valvular Assessment TV/PV Normal Normal Normal Name Value Range Name Value Range Name Value Range Ao Evelyn (MM): 3.2 cm (2.2 cm-3.7 AV Vmax: 1.30 m/s (1 m/s-1.7 PV Vmax: 1.02 m/s (0.6 m/s-0.9 cm) m/s) m/s) IVSd (2D): 0.9 cm (0.6 cm-1.1 AV maxP mmHg ( - ) PV PGmax: 4 mmHg ( - ) cm) LVOT Vmax: 0.72 m/s (0.7 m/s-1.1 LVDd (2D): 4.6 cm (4.2 cm-5.9 m/s) cm) MV E Vmax: 0.42 m/s ( - ) LVDs (2D): 3.0 cm (2.1 cm-4 MV A Vmax: 0.27 m/s ( - ) cm) MV E/A: 1.56 ( - ) LVPWd (2D): 1.0 cm (0.6 cm-1 cm) LVEF (2D): 65 (>=54 %) Continued Measurements: Chambers Valvular Assessment AV/MV Valvular Assessment TV/PV Name Value Name Value Name Value LADs Lon.1 cm MV E/E' Lateral: 3.40 CVP (est.): 5 mmHg LA Area: 17.2 cm2 LA Volume: 54 ml LA Volume Index: 28.4 ml/m2 Patient: JL DAVIES Study Date: 02/17/2018 Page 1 of 2 04:11 PM Findings: Left Ventricle: Normal size left ventricle. No LV hypertrophy. Normal global systolic LV function. EF is 65 %. No regional wall motion abnormality. Normal diastolic LV function. Right Ventricle: Normal size right ventricle. Left Atrium: The left atrium is normal in size. Right Atrium: The right atrium is normal in size. Mitral Valve: The mitral valve is normal in appearance and function. Mild mitral valve regurgitation is present. No mitral stenosis is present. Aortic Valve: The aortic valve is normal in appearance and function. There is no significant aortic valve regurgitation. No aortic valve stenosis is present. Tricuspid Valve: The tricuspid valve is normal in appearance and function. Trivial tricuspid valve regurgitation. Pulmonic Valve: The pulmonic valve is normal in appearance and function. There is no pulmonic regurgitation seen. Aorta: The aorta is normal. Normal size aortic root measuring 3.2 cm. IVC: Not imaged. Pericardium: No pericardial effusion. No pleural effusion. Exam Comments: Compare to previous echo images done 02/11/18. (No Signature Object) Patient: JL DAVIES Study Date: 02/17/2018 Page 2 of 2 04:11 PM [id number]
[2018-02-17] MEDS ORDERED: ALBUTEROL 60 PUFFS/8 GM MDI IH PRN (17:42)
--- NOTE | 2018-02-17 19:23 | GCON ---
[f rep st] CONSULTATION CARDIOLOGY CONSULTATION DATE OF CONSULTATION: 02/17/2018 CONSULTING PHYSICIAN: Xiao Dean MD HISTORY OF PRESENT ILLNESS: The patient is a pleasant 62-year-old gentleman, well-known to [facility], who is primarily cared for by Dr. Tono Aguilera. He had undergone a cardiac catheterization on February 12, 2018, in the setting of exertional chest symptoms. He was found to have proximal stenosis of the LAD and underwent percutaneous coronary intervention to the LAD as well as the diagonal branch. He states that last evening, he developed his typical substernal 2/10 nonradiating chest pressure. He states the pain has been constant since last evening. He took 4 nitroglycerin throughout the course of the night with no relief. He denies any other associated symptoms of shortness of breath, dyspnea , PND, orthopnea, or lower extremity edema. He denies complaints of dizziness, lightheadedness, near syncope, or syncope. Currently, at the time of my exam, he is resting comfortably in the emergency room. He is hemodynamically stable with a heart rate in the 50s, systolic blood pressure in the 140s. He states he has been compliant with his medications including aspirin, Brilinta , Crestor and metoprolol. PAST MEDICAL HISTORY: 1. Coronary artery disease with recent PCI to the proximal left anterior descending and diagonal branches. 2. GERD. MEDICATIONS ON ADMISSION: 1. Aspirin 81 mg daily. 2. Brilinta 90 mg p.o. b.i.d. 3. Crestor 10 mg daily. 4. Metoprolol tartrate 25 mg p.o. b.i.d. 5. Albuterol 1-2 puffs q.4 hours p.r.n. 6. Nitroglycerin 0.4 mg sublingual q.5 minutes p.r.n. ALLERGIES TO MEDICATION: Include sulfa. SOCIAL: He is a career , he has been in the [employer] for 28 years. He exercises regularly with doing sit-ups and pushups and a 2-mile run in a 7 minute, 30 second mile pace every morning. He is . He lives with his . FAMILY: No family history of premature coronary artery disease with the exception of his maternal grandmother. PHYSICAL EXAMINATION: VITAL SIGNS: Blood pressure 138/79, heart rate of 44 in sinus bradycardia, oxygen saturation 98% on room air, temperature 36.6. GENERAL : He is awake, alert, oriented, appropriate. No apparent distress. NECK: There is no evidence of JVP or carotid bruits. LUNGS: Clear to auscultation bilaterally. CARDIAC: S1, S2. Regular rate and rhythm. No murmurs, rubs, or gallops. ABDOMEN: Soft, nontender, nondistended. There is no pulsatile mass or abdominal bruit. EXTREMITIES: No evidence of cyanosis, clubbing or edema. DATA: Lab results: White blood cell count 8.65, hemoglobin 15.3, hematocrit 42.7, platelets 249. D-dimer slightly elevated at 0.57. Sodium 140, potassium 4.5, chloride 101, bicarb 28, BUN 15, creatinine 1.0. Troponin 0.053. CRP 12.1. ECG on admission at 1221, February 17, 2018, demonstrates sinus bradycardia at 49 beats per minute with left axis deviation. No evidence of ischemic changes or acute infarction. Echocardiogram: Performed this afternoon demonstrates LVEF of 65% with mild mitral regurgitation, trivial tricuspid regurgitation. No pericardial effusion. Normal global left ventricular systolic function with no regional wall motion abnormalities. IMPRESSION: 1. Chest pain consistent with his typical anginal discomfort. 2. Coronary artery disease with percutaneous coronary intervention to the proximal left anterior descending and diagonal branch February 12, 2018. 3. Gastroesophageal reflux disease. 4. Remote history of asthma. SUMMARY: The patient is a pleasant 62-year-old gentleman who returns with a 2/ 10 substernal chest pressure that has been constant since last evening. Pain is not responsive to sublingual nitroglycerin. He is hemodynamically stable with well-controlled blood pressures and baseline sinus bradycardia. Echocardiogram demonstrates normal left ventricular systolic function with no regional wall motion abnormalities. There is no evidence of pericardial effusion. His ECG does demonstrate sinus bradycardia with no evidence of acute infarct or ischemia. He does complain of some pleuritic component to his chest discomfort, worse with deep inspiration. PLAN: 1. Serial cardiac enzymes. 2. Continue current medications. 3. In the setting of elevated D Dimer, Consider CTA 4. N.p.o. after midnight. 5. Pending on troponins over the course of the night, will consider stress testing versus cardiac catheterization. 6. Would recommend discontinuing ranitidine and changing to a proton pump inhibitor with Protonix. 45 minutes has been spent in coordinating care for this patient. /[id number]/MODL MTDD
[2018-02-17] MEDS: TICAGRELOR 90 MG TAB PO SCH (20:20)
[2018-02-17] MEDS: METOPROLOL TARTRATE 25 MG TAB PO SCH (20:20)
--- NOTE | 2018-02-18 08:11 | PDCARPN ---
Cardiology Progress Note Chief Complaint: Chest pain Assessment/Plan: Assessment: 1. Chest pain 2. Coronary disease with PCI to the LAD and diagonal 02/12/2018 3. GERD With symptoms improving despite mild change in troponin overnight, would recommend exercise treadmill stress test this morning. Plan: Exercise treadmill stress test this morning Continue current medications Further workup pending results of treadmill stress test. 02/18/18 08:11 Subjective: Mr. Montes De Oca is feeling better this morning. He still describes his chest pain has markedly improved. He describes his chest discomfort is 0.5/10. No events overnight. No events on telemetry. Hemodynamically stable. Troponin has trended up slightly from 0.055, to 0.060 an this am at 0.065. He denies complaints of shortness of breath, dyspnea, palpitations, dizziness, lightheadedness or fatigue. Echocardiogram yesterday demonstrated normal left ventricular function with no wall motion abnormality. He did receive Protonix last evening. Symptoms may be secondary to GERD. He had been on Prilosec previously but had changed to ranitidine. Objective: Vital Signs (8 Hrs) Temp Pulse Resp BP Pulse Ox 02/18/18 04:00 37.1 C 46 L 18 111/60 94 Intake/Output (24 Hrs) 02/17/18 02/18/18 02/19/18 05:59 05:59 05:59 Intake Total 1230 Balance 1230 Intake: Oral (ml) 1230 IV Intake (ml) 0 Other: Weight 75.8 kg Result Diagrams: 02/17/18 12:35 02/17/18 12:35 Cardiac Labs: Cardiac Lab Results (72 Hrs) 02/17/18 02/17/18 23:32 18:30 Troponin I 0.065 H 0.060 H - Physical Exam Constitutional: WDWN Eyes: PERRL Ears, Nose, Mouth, Throat: moist mucous membranes Cardiovascular: regular rate and rhythm, no murmurs, no rubs, no gallops Respiratory: clear to auscultate bilat, no crackles, no wheezes Musculoskeletal: no muscular tenderness Neurologic: AAOx3, CN II-XII grossly intact Psychiatric: cooperative, interactive, following commands ICD10 Worksheet Patient Problems: Problems Problem Status Onset Chest pain Acute Coronary artery disease Acute
[2018-02-18 08:55] VITALS: BP 107/62
[2018-02-18] MEDS ORDERED: ASPIRIN EC 81 MG TAB PO SCH (09:00)
[2018-02-18] MEDS ORDERED: ROSUVASTATIN CALCIUM 10 MG TAB PO SCH (09:00)
[2018-02-18] MEDS: METOPROLOL TARTRATE 25 MG TAB PO SCH (10:23)
[2018-02-18] MEDS: PANTOPRAZOLE SODIUM 40 MG TAB PO SCH (10:23)
[2018-02-18] MEDS: TICAGRELOR 90 MG TAB PO SCH (10:24)
--- NOTE | 2018-02-18 10:33 | PDCARST ---
CAR Stress Test Results Type of Stress Test: TM stress test Indication: cp Description of Procedure: After informed consent was obtained, pt was exercised according to Dio Protocol. Monitoring was performed with standard stress transmission tester electrode placement. Vital signs were monitored according to protocol throughout the procedure. STRESS EKG AND HEMODYNAMIC DATA. Exercise time: 12 min. (actual TM time 10 min). This is equivalent to: 11.8 METS. Resting heart rate: 55 bpm. Resting blood pressure: 108/70 mmHg. Resting O2 saturation: 96 %. Peak heart rate: 123 bpm. This is 77 % of age predicted maximum heart rate response. Peak blood pressure: 160/80 mmHg. Exercise O2: 95 %. Arrhythmias: occasional PACs with exertion. Reason for termination: The test was stopped due to maximal effort. Symptoms: The patient experienced no typical symptoms of angina during stress or recovery. STRESS TEST ANALYSIS. Baseline ECG: NSR. Stress ECG: Sinus tach. exercise induced ischemic ECG changes: 0.5 mm upsloping STD. Rhythm: Occasional PACsduring exercise. Blood pressure: Normal blood pressure response to exercise. Exercise tolerance: The patient has above average exercise tolerance adjusted for age and gender. Symptoms: No exercise induced symptoms. Impression: DTS: +10. Patient achieved 77% of MPHR on BB and had no ischemia. Conclusion: Low risk TM stress test.
--- NOTE | 2018-02-18 11:55 | ASDISCHSUM ---
Discharge Information Plan Status:Home with No Needs Medically Cleared to Leave:02/18/2018 Discharge Date:02/18/2018 CM D/C Disposition:Home, Routine, Self-Care ADT D/C Disposition:Home, Routine, Self-Care Projected Discharge Date:02/18/2018 Transportation at D/C: Discharge Delay Reason: Follow-Up Date:02/18/2018 Discharge Slot: Final Diagnosis: Placement Information Patient Contact Information Contact Name:LINETTE Relationship: Address:[address] City:[place] Alternate Phone: [facility]/Zip Code:[place] [address] Email: Financial Information Financial Class:HMO and PPO Plans Primary Plan Desc:[facility] Primary Plan Number:[id number] Secondary Plan Desc: Secondary Plan Number: Assessment Information LACE LACE Acuity / Level of Answers: No Care: Did the patient have an inpatient admission? Comorbidities - select Answers: Coronary Artery Disease all that apply # of Emergency department Answers: 1-2 visits in the last 6 months Score: 3 Date Signed: 02/18/2018 11:55 AM Electronically Signed By:Chari Hawkins RN Intervention Information
--- NOTE | 2018-02-18 16:13 | GDS ---
[f rep st] DISCHARGE SUMMARY DISCHARGE DIAGNOSES: Include: 1. Chest pain. 2. Coronary artery disease, status post stent placement January 2018. 3. Gastroesophageal reflux disease. HISTORY OF PRESENT ILLNESS: This is a 62-year-old male with a recent cardiac cath and stent placemen t, who presents with complaints of chest pain. For details of the patient's initial presentation, pl ease see the history and physical dated 02/17/2018. CONSULTATIVE SERVICES: Include cardiology. PROCEDURES: On 02/18/2018, patient underwent cardiac stress testing, which showed no inducible ische blanco. HOSPITAL COURSE: By issue: 1. Chest pain: Patient was seen by Cardiology and ruled out with serial troponins and EKGs. Was ta maggi for treadmill stress testing, and patient reached goal heart rate without any concerning EKG bishop ges. Based on the patient's story, most suspicious for pain related to GERD. Patient was transition ed from ranitidine to Protonix daily and will follow in the outpatient setting with Dr. Kim. 2. Coronary artery disease: Patient was continued on his outpatient cardiac regimen, which includes aspirin, statin, and metoprolol as well as Brilinta. DISPOSITION MEDICATIONS: Please reference the med rec printed on 02/18/2018. FOLLOWUP APPOINTMENTS: Include with Dr. Kim in the next 1-2 weeks for post disposition followup. I spent greater than 30 minutes in the planning and coordination of this discharge. /[id number]/MODL
== END 2018-02-18 11:55 | disposition home or self-care (01) ==
LOC: F2W 15:57
PROVIDERS: ADMIT Family Medicine; ATTEND Hospitalist
DX: R07.9 Chest pain, unspecified (principal); I25.10 Atherosclerotic heart disease of native coronary artery without angina pectoris; K21.9 Gastro-esophageal reflux disease without esophagitis; J45.909 Unspecified asthma, uncomplicated; Z79.82 Long term (current) use of aspirin; Z82.49 Family history of ischemic heart disease and other diseases of the circulatory system; Z95.5 Presence of coronary angioplasty implant and graft; Z88.2 Allergy status to sulfonamides
CPT/HCPCS: 71046; 93005; 93017; 93306; 99285; G0378